=== PATIENT | male | born 1990 | race Caucasian/White ===

== ENCOUNTER → 2023-08-10 13:29 | Outpatient (REF) | payer SELFPAY | LOC: HWRAD 13:29 | PROVIDERS: ATTENDING PHYSICIAN Family Medicine | DX: E78.2 Mixed hyperlipidemia (principal) | CPT/HCPCS: 75571 ==

== ENCOUNTER → 2023-10-10 16:04 | Outpatient (REF) | payer OTHER, SELFPAY | LOC: HWRCS 16:04 | PROVIDERS: ATTENDING PHYSICIAN Internal Medicine Cardiovascular Disease; FAMILY PHYSICIAN Family Medicine | DX: I49.3 Ventricular premature depolarization (principal) | CPT/HCPCS: 93306 ==

== ENCOUNTER 2024-08-17 18:44 | Emergency (ER) | payer OTHER, SELFPAY ==
[2024-08-17 18:47] VITALS: BP 145/84
[2024-08-17 19:20] LABS: % Basophils 0.5 % (0-2); % Eosinophils 0.9 % (0-6); % Immature Granulocytes 0.2 % (0-0.5); % Lymphocytes 26.4 % (20.5-51.1); % Monocytes 7.1 % (1.7-9.3); % Neutrophils 64.9 % (42.2-75.2); Absolute Eosinophils 0.1 10^3/uL (0-0.7); Absolute Lymphocytes 2.3 10^3/uL (1.2-3.4); Absolute Monocytes 0.6 10^3/uL (0.1-0.6); Absolute Neutrophils 5.8 10^3/uL (1.4-6.5); Hematocrit 47.7 % (39.0-52.0); Hemoglobin 16.8 g/dL (13.0-18.0); Mean Corp Hgb Conc. 35.2 g/dL (33.0-37.0); Mean Corpuscular Hgb 32.3 pg (27.0-31.0); Mean Corpuscular Volume 91.7 fL (80.0-94.0); Mean Platelet Volume 10.7 fL (7.4-10.4); Nucleated Red Blood Cells % 0 % (-); Platelet Count 273 10^3/uL (130-400); White Blood Cell Count 8.9 10^3/uL (4.8-10.8)
[2024-08-17 19:33] LABS: ALT (SGPT) 53 U/L (0-50); AST (SGOT) 115 U/L (17-59); Albumin 4.9 g/dl (3.5-5.0); Alkaline Phosphatase 48 U/L (38-126); Blood Urea Nitrogen 18 mg/dl (9-20); Calcium 9.3 mg/dl (8.4-10.2); Carbon Dioxide 24 mmol/L (22-30); Chloride 106 mmol/L (98-107); Glucose 100 mg/dl (70-99); Potassium 4.2 mmol/L (3.5-5.1); Sodium 138 mmol/L (135-145); Total Protein 7.5 g/dl (6.3-8.2); eGFR > 60.00
[2024-08-17 19:43] LABS: Troponin I < 0.012 ng/ml
[2024-08-17 19:47] VITALS: BP 134/74
[2024-08-17 19:49] VITALS: BMI 32.6
--- NOTE | 2024-08-17 19:53 | EDRN ---
Monday pt developed L jaw pain, called his dentist and saw him Monday. Dentist did xrays and said there is no dental issue. Today, pain remains and pt got 'weird sensations in my L wrist and bicep area.' Pt took a walk with his daughter and he
felt very tired, no sob. Pt said this is unusual for him because he works out regularly. No recent air travel or long car rides. No leg pain. Once in awhile pt gets a 'fait sensation' down L pec which correlates with the 'weird feeling in my
wrist.' Pt says neither of those things are pain, they are sensations. The jaw pain is constant and only true pain he feels - pain waxes and wanes. Day 2 pt took aleve for jaw which 'took a little off the top.' No medications for pain since. No
fever/chills/cough, abd pain, n/v, urinary symptoms. Pt has TMJ and says it is usually 'just discomfort, not pain like this.'
--- NOTE | 2024-08-17 19:57 | EDRN ---
Pt adds, left side of his tongue 'feels weird, like tingly.' No rashes.
[2024-08-17 20:00] VITALS: BP 122/79
--- NOTE | 2024-08-17 20:45 | ED.GENMED ---
History of Present Illness
General
Chief Complaint: Jaw Pain
Source: patient
Exam Limitations: none
Time Seen by Provider: 08/17/24 20:18
Nursing documentation reviewed up to this point in time: agreed with
History of Present Illness
History of Present Illness:
34-year-old male with history of hypertension hyperlipidemia presents to the ER for evaluation of jaw pain. Patient reports symptoms have been constant for the past 4 days although intensity waxes and wanes. He reports pain in the left mandibular
region. He says it is somewhat worse with movement of the jaw. He initially thought this was a dental issue and so he went to see his dentist and had x-rays and full exam and was told that it was not a dental issue. His pain is continued and he
said he had some transient pain radiating down the left arm today which prompted him to come to the ER to be evaluated with concern for heart problem. He denies any fever or chills. Denies any trauma. Denies any shortness of breath palpitations.
He has not had any change in his vision or speech. He denies earache. He does note that he has a history of TMJ in the past but says this is more severe than he typically would get.
Past History
Past History
ED Past Medical History: None; Negative HTN, Hypercholesterolemia or NIDDM
ED Past Surgical History: None
Social History
Tobacco: Former smoker
Alcohol: Occasional
Drug: None
Personal: Single
Living: alone
Review of Systems
Review of Systems
All Other Systems: ROS reviewed and negative except as documented in HPI and ROS
Constitutional: Denies fever
EENT: Reports other (Jaw pain)
Respiratory: Denies trouble breathing
Cardiac: Denies chest pain
ABD/GI: Denies abdominal pain, nausea or vomiting
Musculoskeletal: Denies back pain
Neurological: Denies dizzy or headache
Phy Exam
Physical Exam
Physical Exam:
General: Awake, alert, oriented x3; no acute distress
Head: Normocephalic, atraumatic; he does have some tenderness along the left TMJ
Eyes: Conjunctiva normal, EOMI, pupils equal round and reactive to light bilaterally
Ears: TMs clear bilaterally
Throat: Airway intact, handling secretions, no tonsillar erythema or exudate
Neck: Trachea midline, supple without meningismus, no adenopathy, no bruit
Lungs: Clear to auscultation bilaterally, no wheezing, rales, rhonchi
Heart: Regular rate and rhythm, no murmurs, gallops, or rubs
Neuro: Cranial nerves grossly intact, speech fluid
Skin: no rash in area of concern
Extremities: No edema in extremities, equal pulses in all extremities
Scores
Heart Failure Risk
Heart Failure Risk Score: Not Applicable
Heart Score for Chest Pain Patients
STEMI patient?: Not applicable
Withdrawal Assessment of Alcohol
Withdrawal Assessment Completed?: Not applicable
Course
Orders/Labs/Results
Orders:
Orders
08/17/24 18:47
Electrocardiogram (*1) Urgent
Reason for Study: Chest Pain
Cardiac Monitoring- Treatment ONCE
EKG- Treatment ONCE
O2 Therapy [RESP] Urgent
Titrate/Wean O2 to maintain O2 sat greater than (%): 90
Special Instructions: Maintain sats >/=90%
Pulse Ox/spot Check [RESP] Urgent
Quantity: 1
Special Instructions: ON ROOM AIR
08/17/24 19:14
Complete Blood Count/With Diff Urgent
Comprehensive Metabolic Panel Urgent
Troponin I Urgent
Abnormal Lab Results
08/17/24
19:14
MCH 32.3 H pg
(27.0-31.0)
MPV 10.7 H fL
(7.4-10.4)
Glucose 100 H mg/dl
(70-99)
AST 115 H U/L
(17-59)
ALT 53 H U/L
(0-50)
08/17/24 19:14
08/17/24 19:14
Vital Signs
Initial and Last Documented VS:
Initial Vital Signs
Temp Pulse Resp BP Pulse Ox
36.5 C 87 16 145/84 98
08/17/24 18:47 08/17/24 18:47 08/17/24 18:47 08/17/24 18:47 08/17/24 18:47
Last Documented Vital Signs
Temp Pulse Resp BP Pulse Ox
36.5 C 75 14 122/79 94
08/17/24 18:47 08/17/24 20:00 08/17/24 20:00 08/17/24 20:00 08/17/24 20:00
MDM/Problems Addressed
Differential Diagnosis Includes:
TMJ, dental abscess, otitis, anginal equivalent
MDM/Problems Addressed:
34-year-old male presents for evaluation of jaw pain for the past 4 days waxing waning intensity�more intense than his typical TMJ. He says he had a full dental assessment and was told this was unremarkable by his dentist. He was concerned this
could be a heart issue and so he came to the ER for assessment. Vitals and exam as above. His EKG shows sinus rhythm with no acute ischemia. He has an undetectable troponin. Labs show no clinically significant abnormalities. Suspect that this
is worsening of his TMJ symptoms. I think he is stable for discharge. Follow-up with his primary doctor as an outpatient. We spoke about bite guard, NSAIDs as needed. All questions answered.
*Pulse Oximetry
SaO2: 94
Oxygen Mode of Delivery: Room air
Patient hypoxic: no (94%)
*EKG
Interpreted by ED Provider?: Yes
Heart Rate: 89
Rate: normal
Rhythm: sinus
[place]: normal axis
Interval: normal interval
QRS Pattern: normal QRS
Ischemia: no ischemia
*Critical Care Note
Total Time (30-74mins, 75-104mins- exclusive of procedures): Not Applicable
Data Reviewed
Source: patient
Further Testing Considered But Not Given:
Considered need for CT of the face/neck
ED Attending Note
-
Portions of this chart may have been created with voice recognition software.� Occasional wrong word or��sound alike� substitutions may have occurred due to the inherent limitations of voice recognition software.
Discharge Plan
Departure
Patient Disposition: Home (Routine Discharge)
Date of Disposition: 08/17/24
Time of Disposition: 20:43
Patient with high blood pressure during this ER visit?: Yes
Discharge Problem:
Jaw pain
Instructions: Temporomandibular Joint (TMJ) Disorders (DC)
Prescriptions:
No Action
ascorbic acid (vitamin C) [Vitamin C] 1,000 mg Tablet
1,000 mg PO Q48H
lisinopril 5 mg Tablet
5 mg PO DAILY
rosuvastatin 10 mg Tablet
10 mg PO DAILY
cholecalciferol (vitamin D3) [Vitamin D3] 50 mcg (2,000 unit) Capsule
2,000 unit PO DAILY
magnesium oxide 400 mg magnesium Capsule
400 mg PO DAILY
Activity Restrictions/Additional Instructions:
Thank you for visiting the Emergency Department at [facility].
1. Please schedule a follow up appointment as directed. Call first thing tomorrow morning to make an appointment.
2. If indicated, please take your medications as instructed and indicated on discharge paperwork.
3. If any of your symptoms do not improve, or persist, or become more severe within 6-12 hours, please return to the emergency department for further care.
4. Please return to the emergency department if you develop a headache, neck pain/stiffness, fever greater than 100.4F, chest pain, shortness of breath, persistent nausea, vomiting, slurred speech, difficulty walking, numbness/tingling, weakness,
signs of infection or any other symptoms that are worrisome to you.
Please call [phone] if you have any questions.
Interventions
Interventions:
*Risk Screen - Suicide Last Done: 08/17/24 18:47
*General Assessment Last Done: 08/17/24 19:49
*Neglect/Abuse Screening Last Done: 08/17/24 18:47
*ED- Fall Risk Assessment Last Done: 08/17/24 19:49
ED- Cardiac Assessment Last Done: 08/17/24 20:00
Discharge Date and Time
Print Language: PUERTO RICAN
== END 2024-08-17 21:06 | disposition home or self-care (01) ==
LOC: EMR 18:44
PROVIDERS: Emergency Medicine; EMERGENCY PHYSICIAN Emergency Medicine; FAMILY PHYSICIAN Family Medicine
DX: R68.84 Jaw pain (principal); I10 Essential (primary) hypertension; E78.5 Hyperlipidemia, unspecified; Z87.891 Personal history of nicotine dependence
CPT/HCPCS: 99284; 80053; 84484; 85025; 93005